=== PATIENT | female | born 1945 ===

== ENCOUNTER 2025-03-16 10:38 | Outpatient (CLI) | payer OTHER ==
[2025-03-16 11:17] LABS: COVID-19 AG NEGATIVE (NEGATIVE)
== END 2025-03-16 10:40 | disposition home or self-care (01) ==
LOC: LAB 10:38
PROVIDERS: ATTEND Internal Medicine Cardiovascular Disease
DX: J11.1 Influenza due to unidentified influenza virus with other respiratory manifestations (principal); A49.3 Mycoplasma infection, unspecified site; Z20.822 Contact with and (suspected) exposure to COVID-19